=== PATIENT | female | born 1995 | race Caucasian/White ===

== ENCOUNTER 2016-12-12 10:28 | Emergency (ER) | payer MEDICAID ==
--- NOTE | 2016-12-12 10:49 | ED Physician Chart ---
ED Chief Complaint/HPI - Patient Information Date Seen:: 12/12/16 Time Seen:: 10:35 Chief Complaint:: Nasal congestion with cough for 4 days. History of Present Illness:: Pt came in by private auto for the above reason. No fever. Cough with phlegm. Pt has had yellow green nasal discharge with sinus pressure. No dyspnea. No N/V/ D. No mentation change. Allergies:: Allergies Allergy/AdvReac Type Severity Reaction Status Date / Time No Known Allergies Allergy Verified 12/12/16 10:37 Vitals:: Vital Signs - 8 hr 12/12/16 10:28 Temp 98.5 F HR 98 RR 16 BP 125/79 O2 Sat % 98 Historian:: Patient Family MD/PCP:: Unknown LMP:: 11/14/16 Review:: Nurse's Note Reviewed ED Review of Systems - Review of Systems General/Constitutional: No fever, No chills, No weight loss, No weakness, No edema, No loss of appetite Skin: No skin lesions, No rash, No bruising Head: Headache (with frontal sinus pressure.), No light-headedness Eyes: No loss of vision, No pain, No diplopia ENT: No earache, Nasal drainage, Sore throat (?) Neck: No neck pain, No swelling, No stiffness Cardio Vascular: No chest pain, No palpitations, No edema Pulmonary: No SOB, Cough, No wheezing GI: No nausea, No vomiting, No diarrhea, No pain G/U: No dysuria, No frequency, No hematuria Crew Scheduler: No vaginal discharge, No abnormal vaginal bleed Musculoskeletal: No bone or joint pain, No back pain, No muscle pain Endocrine: No polyuria, No polydipsia Psychiatric: No prior psych history Hematopoietic: No bruising, No lymphadenopathy Neurological: No syncope, No focal symptoms, No weakness, No paresthesia, No headache, No dizziness ED Past Medical History - Past Medical History Past Medical History: No significant medical hx Family History: None Social History: Non Smoker, No Alcohol, No Drug Use, Single, Employed, Other ( lives with her mother) Employment:: [employer] Surgical History: other (Breast augmentation in 08/2016.) Psychiatricy History: None Medication: None Family Medical History - Family Member Mother Other Medical History: denies family medical hx ED Physical Exam - Physical Examination General/Constitutional: Awake, Well-developed, well-nourished, Alert, No distress, GCS 15, Non-toxic appearing, Ambulatory Other Gen/Cons comments:: Breathes comfortably, speaks clearly, interacts normally, and ambulates without difficulty. Head: Atraumatic Eyes: Lids, conjuctiva normal, PERRL, EOMI Skin: Nl inspection, No rash, No skin lesions, No ecchymosis, Well hydrated, No lymphadenopathy ENMT: TM canals nl, Lips, teeth, gums nl, Oropharynx nl Other ENMT comments:: Trace light yellow nasal exudate and postnasal drip noticed. Neck: Nontender, Full ROM w/o pain, No nuchal rigidity, No mass, No stridor Respiratory: Nl effort/Exclusion, Clear to Auscultation, No Wheeze/Rhonchi/Rales Cardio Vascular: RRR, No murmur, gallop, rubs GI: No tenderness/rebounding/guarding, No organomegaly, Normal BS's, Nondistended Other GI comments:: Abdomen is soft. Extremities: No tenderness or effusion, No edema Neuro/Psych: Alert/oriented (oriented x 3), Judgement/insight normal, Mood normal, Normal gait, No focal deficits ED Septic Shock - . Is Septic Shock (SBP<90, OR Lactate>4 mmol\L) present?: No - <6hrs of presentation: Vital Signs: Vital Signs - 8 hr 12/12/16 10:28 Temp 98.5 F HR 98 RR 16 BP 125/79 O2 Sat % 98 ED Reassessment (Disposition) - Reassessment Reassessment:: 1103 Pt remains stable. Pt requests to go home now. Aftercare instructions have been given. - Diagnosis Diagnosis:: Acute sinusitis. Stable. - Aftercare/Follow up Instructions Aftercare/Follow-Up Instructions:: Refer to Discharge Instructions Notes:: Bedrest today. May take Sudafed as directed. Increase oral hydration. May take Motrin 200 mg tab 3 tabs po q8h prn for pain or fever. F/U with Dr. Mcclure or PCP of pt's choice in 2-3 days for recheck. Return to ER immediately if condition worsens or if any further questions/problems. Medication Prescribed:: Bactrim DS one tab po q12h for 14 days. D-28 R-0 - Patient Disposition Discharge/Transfer:: Home Time:: 11:10 Condition at Disposition:: Stable
== END 2016-12-12 11:20 | disposition home or self-care (01) ==
LOC: ER 10:28
DX: J01.90 Acute sinusitis, unspecified (principal)
CPT/HCPCS: Z7502

== ENCOUNTER 2017-03-04 17:00 | Emergency (ER) | payer MEDICAID ==
--- NOTE | 2017-03-04 18:59 | ED Physician Chart ---
ED Chief Complaint/HPI - Patient Information Date Seen:: 03/04/17 Time Seen:: 17:30 Chief Complaint:: Vaginal Bleeding History of Present Illness:: onset x 2 days of intermittent spotting type vaginal bleeding with occasional clots; pt's LNMP: 01/24/17; pt admits to unprotected sexual activity this month ; pt denies H/As, S/T, neck pain, C/P, SOB, Abd. Pain, A/N/V/D/C, fever, chills , or urinary s/s Allergies:: Allergies Allergy/AdvReac Type Severity Reaction Status Date / Time No Known Allergies Allergy Verified 12/12/16 10:37 Vitals:: Vital Signs - 8 hr 03/04/17 17:30 Temp 98.3 F HR 107 RR 22 BP 137/74 O2 Sat % 100 Historian:: Patient Review:: Nurse's Note Reviewed <Mitchell Ascencio - Last Filed: 03/04/17 18:54> - Patient Information Allergies:: Allergies Allergy/AdvReac Type Severity Reaction Status Date / Time No Known Allergies Allergy Verified 12/12/16 10:37 Vitals:: Vital Signs - 8 hr 03/04/17 03/04/17 17:30 20:38 Temp 98.3 F 98.1 F HR 107 91 RR 22 18 BP 137/74 119/77 O2 Sat % 100 98 <Suzie Martinez - Last Filed: 03/04/17 22:50> ED Review of Systems - Review of Systems General/Constitutional: No fever, No chills, No weight loss, No weakness, No diaphoresis, No edema, No loss of appetite Skin: No skin lesions, No rash, No bruising Head: No headache, No light-headedness Eyes: No loss of vision, No pain, No diplopia ENT: No earache, No nasal drainage, No sore throat, No tinnitus Neck: No neck pain, No swelling, No thyromegaly, No stiffness, No mass noted Cardio Vascular: No chest pain, No palpitations, No PND, No orthopnea, No edema Pulmonary: No SOB, No cough, No sputum, No wheezing GI: No nausea, No vomiting, No diarrhea, No pain, No melena, No hematochezia, No constipation, No hematemesis G/U: No dysuria, No frequency, No hematuria, No nacturia Reliability Technician: No vaginal discharge, Abnormal vaginal bleeding, No contraction Musculoskeletal: No bone or joint pain, No back pain, No muscle pain Endocrine: No polyuria, No polydipsia Psychiatric: No prior psych history, No depression, No anxiety, No suicidal ideation, No homicidal ideation, No auditory hallucination, No visual hallucination Hematopoietic: No bruising, No lymphadenopathy Allergic/Immuno: No urticaria, No angioedema Neurological: No syncope, No focal symptoms, No weakness, No paresthesia, No headache, No seizure, No dizziness, No confusion, No vertigo <Mitchell Ascencio - Last Filed: 03/04/17 18:54> ED Past Medical History - Past Medical History Obtainable: Yes Past Medical History: No significant medical hx Family History: None Social History: Non Smoker, No Alcohol, No Drug Use, Single, Employed Surgical History: None Psychiatricy History: None Medication: Reviewed <Mitchell Ascencio - Last Filed: 03/04/17 18:54> Family Medical History - Family Member Mother History Unknown: Yes Ethnicity: Non- Living Status: Still Living <Suzie Martinez - Last Filed: 03/04/17 22:50> ED Physical Exam - Physical Examination General/Constitutional: Awake, Well-developed, well-nourished, Alert, No distress, GCS 15, Non-toxic appearing, Ambulatory Head: Atraumatic Eyes: Lids, conjuctiva normal, PERRL, EOMI Skin: Nl inspection, No rash, No skin lesions, No ecchymosis, Well hydrated, No lymphadenopathy ENMT: External ears, nose nl, TM canals nl, Nasal exam nl, Lips, teeth, gums nl , Oropharynx nl, Tonsils nl Neck: Nontender, Full ROM w/o pain, No JVD, No nuchal rigidity, No bruit, No mass, No stridor Respiratory: Nl effort/Exclusion, Clear to Auscultation, No Wheeze/Rhonchi/Rales Cardio Vascular: RRR, No murmur, gallop, rubs, NL S1 S2, Carotid/Femoral/Distal pulses equal bilaterally GI: No tenderness/rebounding/guarding, No organomegaly, No hernia, Normal BS's, Nondistended, No mass/bruits, No McBurney tenderness : No CVA tenderness Extremities: No tenderness or effusion, Full ROM, normal strength in all extremities, No edema, Normal digits & nails Neuro/Psych: Alert/oriented, DTR's symmetric, Normal sensory exam, Normal motor strength, Judgement/insight normal, Mood normal, Normal gait, No focal deficits Misc: Normal back, No paraspinal tenderness <Katerine Ascencioil - Last Filed: 03/04/17 18:54> ED Labs/Radiology/EKG Results - Lab Results Results: Laboratory Tests 03/04/17 03/04/17 03/04/17 18:51 19:00 19:00 WBC RBC Hgb Hct MCV MCH MCHC Differential RDW Plt Count MPV Neutrophils % Lymphocytes % Monocytes % Eosinophils % Basophils % PT INR PTT (Actin FS) Sodium Potassium Chloride Carbon Dioxide Anion Gap BUN Creatinine Est GFR ( Amer) Est GFR (Non-Af Amer) BUN/Creatinine Ratio Glucose Calcium Beta HCG, Quant Urine Source CLEAN C Urine Color RED Urine Clarity HAZY Urine pH 7.0 Ur Specific Harleigh 1.015 Urine Protein 30 H Urine Glucose (UA) NEGATIVE Urine Ketones NEGATIVE Urine Blood LARGE H Urine Nitrate NEGATIVE Urine Bilirubin NEGATIVE Urine Urobilinogen 0.2 Ur Leukocyte Esterase TRACE H Urine RBC >100 H Urine WBC 0-2 Ur Epithelial Cells RARE Urine Bacteria OCCASIONAL Urine Test NEGATIVE POC Ur Test Negative 03/04/17 03/04/17 03/04/17 19:38 19:38 19:38 WBC 7.7 RBC 4.63 Hgb 12.6 Hct 38.0 L MCV 82.0 MCH 27.3 MCHC Differential 33.3 RDW 14.8 Plt Count 217 MPV 8.7 Neutrophils % 76.9 Lymphocytes % 9.1 L Monocytes % 7.1 Eosinophils % 4.4 Basophils % 2.5 H PT 10.9 INR 1.05 PTT (Actin FS) 26.3 Sodium 137 Potassium 3.7 Chloride 104 Carbon Dioxide 24.3 Anion Gap 12.4 BUN 13 Creatinine 0.7 Est GFR ( Amer) > 60.0 Est GFR (Non-Af Amer) > 60.0 BUN/Creatinine Ratio 18.6 Glucose 94 Calcium 9.3 Beta HCG, Quant Urine Source Urine Color Urine Clarity Urine pH Ur Specific Harleigh Urine Protein Urine Glucose (UA) Urine Ketones Urine Blood Urine Nitrate Urine Bilirubin Urine Urobilinogen Ur Leukocyte Esterase Urine RBC Urine WBC Ur Epithelial Cells Urine Bacteria Urine Test POC Ur Test 03/04/17 19:39 WBC RBC Hgb Hct MCV MCH MCHC Differential RDW Plt Count MPV Neutrophils % Lymphocytes % Monocytes % Eosinophils % Basophils % PT INR PTT (Actin FS) Sodium Potassium Chloride Carbon Dioxide Anion Gap BUN Creatinine Est GFR ( Amer) Est GFR (Non-Af Amer) BUN/Creatinine Ratio Glucose Calcium Beta HCG, Quant < 1 H Urine Source Urine Color Urine Clarity Urine pH Ur Specific Harleigh Urine Protein Urine Glucose (UA) Urine Ketones Urine Blood Urine Nitrate Urine Bilirubin Urine Urobilinogen Ur Leukocyte Esterase Urine RBC Urine WBC Ur Epithelial Cells Urine Bacteria Urine Test POC Ur Test - Radiology Results Results: Pelvic u/s: normal <Suzie Martinez - Last Filed: 03/04/17 22:50> ED Assessment - Assessment General Assessment: Abnormal vaginal bleeding UTI Assessment/Comments:: NS 1L bolus IV Rocephin 1g IV Provera Bactrim DS <Suzie Martinez - Last Filed: 03/04/17 22:50> ED Septic Shock - . Is Septic Shock (SBP<90, OR Lactate>4 mmol\L) present?: No - <6hrs of presentation: Vital Signs: Vital Signs - 8 hr 03/04/17 17:30 Temp 98.3 F HR 107 RR 22 BP 137/74 O2 Sat % 100 <Mitchell Ascencio - Last Filed: 03/04/17 18:54> - . Is Septic Shock (SBP<90, OR Lactate>4 mmol\L) present?: No - <6hrs of presentation: Vital Signs: Vital Signs - 8 hr 03/04/17 03/04/17 17:30 20:38 Temp 98.3 F 98.1 F HR 107 91 RR 22 18 BP 137/74 119/77 O2 Sat % 100 98 <Suzie Martinez - Last Filed: 03/04/17 22:50> ED Reassessment (Disposition) - Reassessment Reassessment Condition:: Improved - Aftercare/Follow up Instructions Aftercare/Follow-Up Instructions:: Counseled pt regarding lab results/diagnosis & need follow up, Refer to Discharge Instructions - Patient Disposition Discharge/Transfer:: Home <Suzie Martinez - Last Filed: 03/04/17 22:50> ED Discharge Plan <Mitchell Ascencio - Last Filed: 03/04/17 18:54> <Suzie Martinez - Last Filed: 03/04/17 22:50> - Patient Disposition Prescriptions: medroxyPROGESTERone Acetate [Provera] 10 mg PO DAILY 10 Days #10 tab Sulfamethoxazole/TMP [Bactrim Ds] 1 tab PO BID #6 tab
[2017-03-04 19:52] LABS: % BASOPHILS 2.5 % (0.0-2.0); % EOSINOPHILS 4.4 % (0.0-5.0); % LYMPHOCYTES 9.1 % (20.0-50.0); % MONOCYTES 7.1 % (2.0-10.0); % NEUTROPHILS 76.9 % (40.0-80.0); BASOPHILE ABSOLUTE 0.2 Th/cumm (0-0.2); EOSINOPHILE ABSOLUTE 0.3 Th/cmm (0.1-0.4); HEMOGLOBIN 12.6 gm/dL (12-16); LYMPHOCYTE ABSOLUTE 0.7 Th/cmm (1.5-3.0); MEAN CORPUSCULAR HEMOGLOBIN 27.3 pg (27.0-31.0); MEAN CORPUSCULAR HGB CONC 33.3 pg (28.0-36.0); MEAN PLATELET VOLUME 8.7 fl; MONOCYTE ABSOLUTE 0.5 Th/cmm (0.3-1.0); PLATELET COUNT 217 Th/cmm (150-400); RED BLOOD COUNT 4.63 Mil/cmm (3.80-5.10); RED CELL DISTRIBUTION WIDTH 14.8 % (11.5-20.0); WHITE BLOOD COUNT 7.7 Th/cmm (4.8-10.8)
[2017-03-04 20:02] LABS: INR 1.05 (0.5-1.4); PROTHROMBIN TIME (TEST) 10.9 SECONDS (9.5-11.5)
[2017-03-04 20:05] LABS: ANION GAP 12.4 (7.0-16.0); BUN - UREA NITROGEN 13 mg/dL (7-25); CALCIUM SERUM 9.3 mg/dL (8.6-10.3); CARBON DIOXIDE 24.3 mEq/L (21.0-31.0); CHLORIDE 104 mEq/L (98-107); CREATININE - SERUM 0.7 mg/dL (0.6-1.2); GFR AFRICAN-AMERICAN > 60.0 ml/min (>90); GFR NON AFRICAN-AMERICAN > 60.0 ml/min; GLUCOSE 94 mg/dL (70-105); POTASSIUM SERUM 3.7 mEq/L (3.5-5.1); SODIUM SERUM 137 mEq/L (136-145)
[2017-03-04] MEDS ORDERED: Sodium Chloride 0.9% 1,000 ML IV ONE (20:11)
[2017-03-04 20:12] LABS: URINE BILIRUBIN NEGATIVE (NEGATIVE); URINE BLOOD LARGE (NEGATIVE); URINE GLUCOSE (UA) NEGATIVE (NEGATIVE); URINE KETONE NEGATIVE (NEGATIVE); URINE LEUKOCYTE ESTERASE TRACE (NEGATIVE); URINE MICROSCOPIC INDICATED? YES; URINE NITRATE NEGATIVE (NEGATIVE); URINE PROTEIN 30 mg/dL (NEGATIVE); URINE SOURCE CLEAN C; URINE UROBILINOGEN 0.2 E.U./dL (0.2 - 1.0)
[2017-03-04 20:30] LABS: URINE CLARITY HAZY (CLEAR); URINE COLOR RED
[2017-03-04 20:31] LABS: URINE BACTERIA OCCASIONAL /hpf (NONE SEEN); URINE EPITHELIAL CELLS RARE /lpf (FEW); URINE RBC >100 /hpf (0-5); URINE WBC 0-2 /hpf (0-5)
[2017-03-04] MEDS ORDERED: cefTRIAXone 1 GM in Sodium Chloride 0.9% 50 ML IV ONE (20:42)
[2017-03-05] MEDS ORDERED: Sulfamethoxazole/TMP 800/160mg Tab PO SCH (09:00)
--- NOTE | 2017-03-05 09:22 | Diagnostic Imaging Report ---
Pelvic ultrasound HISTORY: Abnormal uterine bleeding There is a normal uterine size (8.0 x 2.4 0.4 cm). No focal myometrial lesions. The endometrium measures 7 mm thickness. The right ovary measures 3.2 x 2.0 x 1.9 cm. No abnormal masses. The left ovary measures 3.9 x 1.8 x 2.4 cm. This is associated with a 1.0 cm cyst. No free fluid in the pelvis. IMPRESSION: 1. Limited exam associated with transabdominal sonographic technique 2. 1.0 cm left ovarian cyst 3. Endometrial thickness 7 mm 4. No other significant abnormalities In the presence of a positive test, ectopic gestation must be excluded.
== END 2017-03-04 23:00 | disposition home or self-care (01) ==
LOC: ER 17:00
DX: N93.9 Abnormal uterine and vaginal bleeding, unspecified (principal); N39.0 Urinary tract infection, site not specified
CPT/HCPCS: 99285; 96365; 76856; 36415; 84702; 85025; 85610; 81001; 81025 ×2; 80048; J0696; J7030